=== PATIENT | male | born 1990 | race American Indian/Alaskan Native ===

== ENCOUNTER 2021-09-25 20:46 | Emergency (ER) | payer OTHER ==
[2021-09-26] MEDS ORDERED: oxyCODONE /ACETAMINOPHEN 5-325MG TAB PO ONE (02:06)
[2021-09-26 02:47] VITALS: BP 136/70
== END 2021-09-26 02:43 | disposition home or self-care (01) ==
LOC: ED 20:46
DX: M54.9 Dorsalgia, unspecified (principal); M25.539 Pain in unspecified wrist; Z53.21 Procedure and treatment not carried out due to patient leaving prior to being seen by health care provider